=== PATIENT | male | born 1960 | race African-American/Black ===

== ENCOUNTER 2020-06-02 19:00 | Outpatient (CLI) | payer BC | END 2020-06-02 19:01 | disposition home or self-care (01) | LOC: SLEEPLAB 19:00 | PROVIDERS: ATTEND Internal Medicine | DX: G47.33 Obstructive sleep apnea (adult) (pediatric) (principal); R06.83 Snoring; E66.9 Obesity, unspecified; I10 Essential (primary) hypertension | CPT/HCPCS: 95811 ==